=== PATIENT | male | born 1960 | race Hispanic/Latino ===

== ENCOUNTER 2018-01-02 17:55 | Observation (INO) | payer BC ==
[~2018-01-02] VITALS: Ht 154.2 cm; Wt 101.6 kg
[~2018-01-02 17:55] MED LIST: FENTANYL CITRATE/PF 100MCG/2 ML INJ ONE; MIDAZOLAM HCL 2 MG/2 ML VIAL ONE
[2018-01-02 18:24] LABS: BASOPHILS # (AUTO) 0.1 (0.0-0.1); BASOPHILS % 0.6 % (0.0-1.0); EOSINOPHILS # (AUTO) 0.6 (0.0-0.4); EOSINOPHILS % 6.2 % (0.0-6.0); HEMATOCRIT 40.9 % (38.2-49.6); HEMOGLOBIN 14.5 g/dL (14.0-18.0); LYMPHOCYTES # (AUTO) 3.6 (1.0-3.2); LYMPHOCYTES % 39.5 % (18.0-39.1); MEAN CORPUSCULAR HEMOGLOBIN 32.5 pg (28-32); MEAN CORPUSCULAR HGB CONC 35.5 g/dL (31-35); MEAN CORPUSCULAR VOLUME 91.7 fL (81-99); MONOCYTES # (AUTO) 0.6 (0.2-0.8); NEUTROPHILS # (AUTO) 4.2 (2.1-6.9); NEUTROPHILS % 46.4 % (38.7-80.0); PLATELET COUNT 231 x10e3/uL (140-360); RED BLOOD COUNT 4.46 x10e6/uL (4.3-5.7); RED CELL DISTRIBUTION WIDTH 12.6 % (11.7-14.4)
[2018-01-02] MEDS ORDERED: ONDANSETRON HCL 4 MG ORAL DISINTEGRATING TAB PO ONE (18:30)
[2018-01-02] MEDS ORDERED: HYDROMORPHONE 2MG/ML INJ IV ONE (18:30)
[2018-01-02 18:41] LABS: ALANINE AMINOTRANSFERASE 34 IU/L (0-55); ALBUMIN 3.9 g/dL (3.5-5.0); ALKALINE PHOSPHATASE 62 IU/L (40-150); ANION GAP 15.3 mmol/L (8-16); BLOOD UREA NITROGEN 16 mg/dL (7-26); BUN/CREATININE RATIO 14 (6-25); CALCIUM 9.3 mg/dL (8.4-10.2); CARBON DIOXIDE 24 mmol/L (22-29); CHLORIDE 100 mmol/L (98-107); CREATININE, SERUM 1.11 mg/dL (0.72-1.25); EST GLOMERULAR FILTRATION RATE > 60 ML/MIN (60-); GLUCOSE 102 mg/dL (74-118); POTASSIUM 3.3 mmol/L (3.5-5.1); SODIUM 136 mmol/L (136-145)
[2018-01-02 18:53] LABS: CREATINE KINASE 257 IU/L (30-200)
--- NOTE | 2018-01-02 19:09 | Diagnostic Imaging Report ---
History: Fall, pain Comparison studies:None Technique: Axial images were obtained from the brain and cervical spine. Coronal and sagittal images reconstructed from the axial data. Intravenous contrast: None Findings: Head CT: Scalp/skull: No abnormalities. No fractures, blastic or lytic lesions. Brain sulci: Appropriate for age. Ventricles: Normal in size and configuration. No hydrocephalus. Extra-axial spaces: No masses. No fluid collections. Parenchyma: No abnormal densities. No masses, hemorrhage, acute or chronic cortical vascular insults. Sellar/suprasellar region: No abnormalities. Craniocervical junction: Patent foramen magnum. No Chiari one malformation. Cervical spine CT: Fractures: None. Soft tissues: No gross abnormalities. Atlantoaxial articulation: Intact. Alignment: Straightening of the normal lordosis. No scoliosis. Cervicomedullary junction: No abnormalities. Patent foramen magnum. Vertebrae: No infection or neoplasm. Degenerative changes: None. Incidental findings: None. Impression: Head CT: 1. Normal study. Cervical spine CT: 1. No acute abnormalities. 2. Cannot exclude ligament, spinal cord and or vascular abnormalities on the basis of this examination. Signed by: DR Ke Maldonado M.D. on 01/02/2018 7:06 PM
[2018-01-02] MEDS ORDERED: DEXAMETHASONE SOD PHOS INJ 4 MG/ML VIAL ONE (19:35)
[2018-01-02] MEDS ORDERED: NALOXONE HCL INJ 0.4 MG/ML AMP ONE (19:35)
[2018-01-02] MEDS ORDERED: SUCCINYLCHOLINE 200 MG/10 ML SYR ONE (19:35)
[2018-01-02] MEDS ORDERED: ONDANSETRON HCL INJ 2 MG/ML VIAL ONE (19:35)
[2018-01-02] MEDS ORDERED: SEVOFLURANE INHAL SOLN 250 ML PEN BTL ONE (19:35)
[2018-01-02] MEDS ORDERED: PROPOFOL IV EMULSION 10 MG/ML 20 ML VIAL ONE (19:35)
[2018-01-02] MEDS ORDERED: TETANUS/DIPHTHERIA TOX ADULT 0.5 ML SYR IM ONE (19:45)
[2018-01-02] MEDS ORDERED: CEFAZOLIN SOD 1 GM/NS 50ML 50 ML IV ONE (19:45)
--- NOTE | 2018-01-02 20:01 | Diagnostic Imaging Report ---
Exam: Left femoral x-ray AP and lateral views Indication:Fell off horse, bruising, deep laceration right upper anterior tib-fib Comparison: None Findings: The bones are well-mineralized. No fracture, dislocation, lytic or blastic lesion. The soft tissues are unremarkable. Impression: No evidence of a left femoral fracture. Signed by: Dr. Vicky Galvan M.D. on 01/02/2018 7:57 PM
--- NOTE | 2018-01-02 20:01 | Diagnostic Imaging Report ---
EXAM: HIPS BILAT 5 VWS (+/- PELVIS) INDICATION: Fell off horse, bruising, deep laceration right upper anterior tib-fib COMPARISON: None FINDINGS: BONES: No acute fractures. JOINTS: No malalignment. Degenerative changes of the pubic symphysis. SOFT TISSUES: Normal IMPRESSION: No evidence of a pelvic or hip fracture. Signed by: Dr. Vicky Galvan M.D. on 01/02/2018 7:58 PM
--- NOTE | 2018-01-02 20:03 | Diagnostic Imaging Report ---
Exam: Right femoral x-ray AP and lateral views Indication:Fell off horse, bruising, deep laceration right upper anterior tib-fib Comparison: None Findings: The bones are well-mineralized. No fracture, dislocation, lytic or blastic lesion. The soft tissues are unremarkable. Impression: No evidence of a right femoral fracture. Signed by: Dr. Vicky Galvan M.D. on 01/02/2018 8:00 PM
--- NOTE | 2018-01-02 20:03 | Diagnostic Imaging Report ---
EXAM: LOWER LEG LEFT, AP and lateral INDICATION: Fell off horse, deep laceration right anterior tibia and fibula COMPARISON: None FINDINGS: BONES: No acute fractures. JOINTS: No malalignment. SOFT TISSUES: Normal IMPRESSION: No left tibial or fibular fracture. Signed by: Dr. Vicky Galvan M.D. on 01/02/2018 7:59 PM
--- NOTE | 2018-01-02 20:06 | Diagnostic Imaging Report ---
EXAM: LOWER LEG RIGHT, AP and lateral INDICATION: Fell off horse, bruising, deep laceration right upper anterior tib-fib COMPARISON: None FINDINGS: BONES: No acute fractures. JOINTS: No malalignment. SOFT TISSUES: Subcutaneous emphysema anterior tibia superficial 5 mm radiopaque foreign body anterior tibia at the level of the tibial tuberosity. IMPRESSION: Laceration anterior tibia associated with a 5 mm radiopaque foreign body. No evidence of underlying fracture. Signed by: Dr. Vicky Galvan M.D. on 01/02/2018 8:03 PM
[2018-01-02] MEDS ORDERED: CEFAZOLIN SOD 1 GM VIAL ONE (20:08)
--- NOTE | 2018-01-02 20:08 | Diagnostic Imaging Report ---
EXAM: CHEST SINGLE (NOT PORTABLE), AP 1 view INDICATION: Fall off horse COMPARISON: None FINDINGS: LINES/TUBES: None LUNGS: No consolidations or edema. PLEURA: No effusions or pneumothorax. HEART AND MEDIASTINUM: Normal size and contour. BONES AND SOFT TISSUES: No acute findings. IMPRESSION: No acute thoracic abnormality. Signed by: Dr. Vicky Galvan M.D. on 01/02/2018 8:04 PM
[2018-01-02] MEDS ORDERED: LEVOFLOXACIN 500MG/D5W 100ML 100 ML IV STA (20:18)
[2018-01-02 20:31] LABS: INR 1.07; PROTHROMBIN TIME 13.1 seconds (11.9-14.5)
[2018-01-02 20:32] LABS: PARTIAL THROMBOPLASTIN TIME 32.3 seconds (23.8-35.5)
[2018-01-02] MEDS ORDERED: BACITRACIN 50,000 UNIT VIAL ONE (20:49)
[2018-01-02] MEDS ORDERED: LIDOCAINE HCL 1% LOCAL INJ 20 ML VIAL INJ ONE (21:00)
[2018-01-02] MEDS ORDERED: METHYLENE BLUE 1% INJ 10 ML VIAL INJ ONE ×2 (21:00→21:01)
[2018-01-02] MEDS ORDERED: SODIUM CHLORIDE 0.9% 500ML 0 ML ONE (21:04)
[2018-01-02] MEDS ORDERED: SODIUM CHLORIDE 0.9% 1000ML 1,000 ML IV SCH (21:13)
[2018-01-02] MEDS ORDERED: LEVOFLOXACIN 500MG/D5W 100ML 100 ML IV SCH (21:15)
[2018-01-02] MEDS ORDERED: HYDRALAZINE HCL 20 MG/ML VIAL IV PRN (21:15)
[2018-01-02] MEDS ORDERED: SODIUM CHLORIDE 0.9% IRRIG 3,000 ML BAG IR ONE (21:15)
[2018-01-02] MEDS ORDERED: HYDROMORPHONE 1MG/1ML INJ IV PRN (21:15)
[2018-01-02] MEDS ORDERED: ONDANSETRON HCL INJ 2 MG/ML VIAL IV PRN (21:15)
--- OUTSIDE RECORDS SUMMARY | 2018-01-02 21:48 | XMS REPORT ---
Author Author [facility] Address Unknown Phone Unavailable Care Team Providers Care Stoner Hand Name Role Phone YOSVANY LIU Unavailable Unavailable Problems This patient has no known problems. Allergies, Adverse Reactions, Alerts This patient has no known allergies or adverse reactions. Medications This patient has no known medications. Results Test Description Test Time Test Comments Text Results Atomic Results Result Comments CHEST SINGLE (NOT PORTABLE) [place] [address] Patient Name: REBEKAH SAM MR #: [id number] : 1960 Age/Sex: 57/M Req #: [id number] Adm Physician: Ordered by: SONIA MILLARD ASSOCIATE PASTOR Report #: [id number] Location: ER Room/Bed: Procedure: [id number] DX/CHEST SINGLE (NOT PORTABLE) Exam Date: 01/02/18 Exam Time: 1845 REPORT STATUS: Signed EXAM: CHEST SINGLE (NOT PORTABLE), AP 1 view INDICATION: Fall off horse COMPARISON: None FINDINGS: LINES/TUBES: None LUNGS: No consolidations or edema. PLEURA: No effusions or pneumothorax. HEART AND MEDIASTINUM: Normal size and contour. BONES AND SOFT TISSUES: No acute findings. IMPRESSION: No acute thoracic abnormality. Signed by: Dr. Jake Galvan M.D. on 01/02/2018 8:04 PM Dictated By: JAKE GALVAN MD 03 Transcribed By: JONH on 01/02/182003 COPY TO: SONIA MILLARD ASSOCIATE PASTOR CT CERVICAL SPINE WO [place] [address] Patient Name: REBEKAH SAM MR #: [id number] : 1960 Age/Sex: 57/M Req #: [id number] Adm Physician: Ordered by: SONIA MILLARD ASSOCIATE PASTOR Report # : [id number] Location: ER Room/Bed: Procedure: [id number] CT/CT CERVICAL SPINE WO Exam Date: Exam Time : REPORT STATUS: Signed History: Fall, pain Comparison studies:None Technique: Axial images were obtained from the brain and cervical spine. Coronal and sagittal images reconstructed from the axial data. Intravenous contrast: None Findings: Head CT: Scalp/skull: No abnormalities. No fractures, blastic or lytic lesions. Brain sulci: Appropriate for age. Ventricles: Normal in size and configuration. No hydrocephalus. Extra-axial spaces: No masses. No fluid collections. Parenchyma: No abnormal densities. No masses, hemorrhage, acute or chronic cortical vascular insults. Sellar/suprasellar region: No abnormalities. Craniocervical junction: Patent foramen magnum. No Chiari one malformation. Cervical spine CT: Fractures: None. Soft tissues: No gross abnormalities. Atlantoaxial articulation: Intact. Alignment: Straightening of the normal lordosis. No scoliosis. Cervicomedullary junction : No abnormalities. Patent foramen magnum. Vertebrae: No infection or neoplasm. Degenerative changes: None. Incidental findings: None. Impression: Head CT: 1. Normal study. Cervical spine CT: 1. No acute abnormalities. 2. Cannot exclude ligament, spinal cord and or vascular abnormalities on the basis of this examination. Signed by: DR Ke Maldonado M.D. on 01/02/2018 7:06 PM Dictated By: KE MALDONADO MD 05 Transcribed By: JONH on 01/02/181905 COPY TO: SONIA MILLARD NP CT BRAIN WO [place] [address] Patient Name: REBEKAH SAM MR #: [id number] : 1960 Age/Sex: 57/M Req #: [id number] Adm Physician: Ordered by: SONIA MILLARD NP Report #: [id number] Location: ER Room/Bed: Procedure: [id number] CT/CT BRAIN WO Exam Date: Exam Time: REPORT STATUS: Signed History: Fall, pain Comparison studies:None Technique: Axial images were obtained from the brain and cervical spine. Coronal and sagittal images reconstructed from the axial data. Intravenous contrast: None Findings: Head CT: Scalp/skull: No abnormalities. No fractures, blastic or lytic lesions. Brain sulci: Appropriate for age. Ventricles: Normal in size and configuration. No hydrocephalus. Extra- axial spaces: No masses. No fluid collections. Parenchyma: No abnormal densities. No masses, hemorrhage, acute or chronic cortical vascular insults. Sellar/suprasellar region: No abnormalities. Craniocervical junction: Patent foramen magnum. No Chiari one malformation. Cervical spine CT: Fractures: None. Soft tissues: No gross abnormalities. Atlantoaxial articulation: Intact. Alignment: Straightening of the normal lordosis. No scoliosis. Cervicomedullary junction : No abnormalities. Patent foramen magnum. Vertebrae: No infection or neoplasm. Degenerative changes: None. Incidental findings: None. Impression: Head CT: 1. Normal study. Cervical spine CT: 1. No acute abnormalities. 2. Cannot exclude ligament, spinal cord and or vascular abnormalities on the basis of this examination. Signed by: DR Ke Maldonado M.D. on 01/02/2018 7:06 PM Dictated By: KE MALDONADO MD 05 Transcribed By: JONH on 01/02/181905 COPY TO: SONIA MILLARD ASSOCIATE PASTOR FEMUR 2 VIEWS MINIMUM LEFT [place] [address] Patient Name: REBEKAH SAM MR #: [id number] : 1960 Age/Sex: 57/M Req #: [id number] Adm Physician: Ordered by: SONIA MILLARD ASSOCIATE PASTOR Report # : [id number] Location: ER Room/Bed: Procedure: [id number] DX/FEMUR 2 VIEWS MINIMUM LEFT Exam Date: Exam Time: REPORT STATUS: Signed Exam: Left femoral x-ray AP and lateral views Indication:Fell off horse, bruising, deep laceration right upper anterior tib-fib Comparison: None Findings: The bones are well- mineralized. No fracture, dislocation, lytic or blastic lesion. The soft tissues are unremarkable. Impression: No evidence of a left femoral fracture. Signed by: Dr. Jake Galvan M.D. on 01/02/2018 7:57 PM Dictated By: JAKE GALVAN MD 56 Transcribed By: JONH on 01/02/181956 COPY TO: SONIA MILLARD ASSOCIATE PASTOR HIPS BILAT 5 VWS (+/- PELVIS) [place] [address] Patient Name: RBEEKAH SAM MR #: [id number] : 1960 Age/Sex: 57/M Req #: [id number] Adm Physician: Ordered by: SONIA MILLARD ASSOCIATE PASTOR Report #: [id number] Location: ER Room/Bed: Procedure: [id number] DX/HIPS BILAT 5 VWS (+/- PELVIS) Exam Date: Exam Time: REPORT STATUS: Signed EXAM: HIPS BILAT 5 VWS (+/- PELVIS) INDICATION: Fell off horse, bruising, deep laceration right upper anterior tib-fib COMPARISON: None FINDINGS: BONES: No acute fractures. JOINTS: No malalignment. Degenerative changes of the pubic symphysis. SOFT TISSUES: Normal IMPRESSION: No evidence of a pelvic or hip fracture. Signed by: Dr. Jake Galvan M.D. on 2017 7:58 PM Dictated By: JAKE GALVAN MD 57 Transcribed By: JONH on 01/02/181957 COPY TO: SONIA MILLARD ASSOCIATE PASTOR LOWER LEG LEFT [place] [address] Patient Name: REBEKAH SAM MR #: [id number] : 1960 Age/Sex: 57/M Req #: [id number] Adm Physician: Ordered by: SONIA MILLARD NP Report #: [id number] Location: ER Room/Bed: Procedure: [id number] DX/LOWER LEG LEFT Exam Date: 01/02/18 Exam Time: 1845 REPORT STATUS: Signed EXAM: LOWER LEG LEFT, AP and lateral INDICATION: Fell off horse, deep laceration right anterior tibia and fibula COMPARISON: None FINDINGS: BONES: No acute fractures. JOINTS: No malalignment. SOFT TISSUES: Normal IMPRESSION: No left tibial or fibular fracture. Signed by: Dr. Jake Galvan M.D. on 01/02/2018 7:59 PM Dictated By: JAKE GALVAN MD 58 Transcribed By: JONH on 01/02/181958 COPY TO: SONIA MILLARD ASSOCIATE PASTOR FEMUR TWO VIEW MINIMUM RIGHT [place] [address] Patient Name: REBEKAH SAM MR #: [id number] : 1960 Age/Sex: 57/M Req #: [id number] Adm Physician: Ordered by: SONIA MILLARD ASSOCIATE PASTOR Report #: [id number] Location: ER Room/Bed: Procedure: [id number] DX/FEMUR TWO VIEW MINIMUM RIGHT Exam Date: Exam Time: REPORT STATUS: Signed Exam: Right femoral x- ray AP and lateral views Indication:Fell off horse, bruising, deep laceration right upper anterior tib-fib Comparison: None Findings: The bones are well -mineralized. No fracture, dislocation, lytic or blastic lesion. The soft tissues are unremarkable. Impression: No evidence of a right femoral fracture. Signed by: Dr. Jake Galvan M.D. on 01/02/2018 8:00 PM Dictated By: JAKE GALVAN MD 99 Transcribed By: JONH on 01/02/181999 COPY TO: SONIA MILLARD NP LOWER LEG RIGHT [place] [address] Patient Name: REBEKAH SAM MR #: [id number] : 1960 Age/Sex: 57/M Req #: [id number] [facility] Physician: Ordered by: SONIA MILLARD NP Report #: [id number] Location: ER Room/Bed: Procedure: [id number] DX/LOWER LEG RIGHT Exam Date: 01/02/18 Exam Time: 1844 REPORT STATUS: Signed EXAM: LOWER LEG RIGHT, AP and lateral INDICATION: Fell off horse, bruising, deep laceration right upper anterior tib -fib COMPARISON: None FINDINGS: BONES: No acute fractures. JOINTS: No malalignment. SOFT TISSUES: Subcutaneous emphysema anterior tibia superficial 5 mm radiopaque foreign body anterior tibia at the level of the tibial tuberosity. IMPRESSION: Laceration anterior tibia associated with a 5 mm radiopaque foreign body. No evidence of underlying fracture. Signed by: Dr. Jake Galvan M.D. on 01/02/2018 8:03 PM Dictated By: JAKE GALVAN MD 02 Transcribed By: JONH on 01/02/182002 COPY TO: SONIA MILLARD NP
--- OUTSIDE RECORDS SUMMARY | 2018-01-02 21:48 | XMS REPORT | Continuity of Care Document ---
Author Author [facility] Organization [facility] Address [address] [place] [address] Phone Unavailable Care Team Providers Care Operating Room Scheduler Name Role Phone ALPESH CUENCA PCP Insurance Providers Guarantor LuciusJames Address [address] [place] [address] Email PT DECLINED [facility] Policy Number [id number] Subscriber's Name James Sam Relationship 18 Self / Same As Patient Group Number [id number] Group Name [employer]. Effective Date 15 Advance Directives Directive Response Recorded Date/Time Does the patient have an advance directive? No 01/02/18 6:34pm If yes, is advance directive on file with [facility]? No 01/02/18 6:34pm If not on file with [facility] will patient provide a copy? No 01/02/18 6:34pm Do you have a Directive to Physician? No 01/02/18 6:34pm Do you have a Medical Power of [place]? No 01/02/18 6:34pm Do you have an out of hospital Do Not Resuscitate Order? No 01/02/18 6:34pm Do you have any special needs we should be aware of? No 01/02/18 6:34pm Do you have a support person here with you today? No 01/02/18 6:34pm Did patient receive Notice of Privacy Practices? Yes 01/02/18 6:34pm Did patient receive patient rights and responsibilities? Yes 01/02/18 6:34pm Problems Medical Problem Onset Date Status Concussion Unknown Laceration of knee with foreign body Unknown Laceration of knee with tendon involvement Unknown Multiple abrasions Unknown Multiple bruises Unknown Medications No medication information available. Social History Smoking Status Start Date Stop Date Never Smoker Hospital Discharge Instructions No hospital discharge instruction information available. Plan of Care Discharge Date 01/02/18 9:15pm Disposition ADMITTED Condition at Discharge Stable Forms Provided Work/School Excuse Prescriptions See Medication Section Functional Status No functional status information available. Allergies, Adverse Reactions, Alerts No known allergies. Immunizations No immunization information available. Vital Signs Acute Vital Signs Vital Response Date/Time Height 5 ft 8 in 01/02/2018 6:02pm Weight 200 lb 01/02/2018 6:02pm Body Mass Index 30.4 kg/m^2 01/02/2018 6:02pm Results Laboratory Results Test Name Result Units Flags Reference Collection Date/Time Result Date/ Time Comments White Blood Count 9.03 x10e3/uL 4.8-10.8 01/02/2018 6:00pm 01/02/2018 6 :34pm Red Blood Count 4.46 x10e6/uL 4.3-5.7 01/02/2018 6:00pm 01/02/2018 6: 34pm Hemoglobin 14.5 g/dL 14.0-18.0 01/02/2018 6:00pm 01/02/2018 6:34pm Hematocrit 40.9 % 38.2-49.6 01/02/2018 6:00pm 01/02/2018 6:34pm Mean Corpuscular Volume 91.7 fL 81-99 01/02/2018 6:00pm 01/02/2018 6: 34pm Mean Corpuscular Hemoglobin 32.5 pg H 28-32 01/02/2018 6:00pm 2017 6:34pm Mean Corpuscular Hemoglobin Concent 35.5 g/dL H 31-35 01/02/2018 6:00pm 01/02/2018 6:34pm Red Cell Distribution Width 12.6 % 11.7-14.4 01/02/2018 6:00pm 2017 6:34pm Platelet Count 231 x10e3/uL 140-360 01/02/2018 6:00pm 01/02/2018 6: 34pm Neutrophils (%) (Auto) 46.4 % 38.7-80.0 01/02/2018 6:00pm 01/02/2018 6: 34pm Lymphocytes (%) (Auto) 39.5 % H 18.0-39.1 01/02/2018 6:00pm 01/02/2018 6 :34pm Monocytes (%) (Auto) 7.0 % 4.4-11.3 01/02/2018 6:00pm 01/02/2018 6: 34pm Eosinophils (%) (Auto) 6.2 % H 0.0-6.0 01/02/2018 6:00pm 01/02/2018 6: 34pm Basophils (%) (Auto) 0.6 % 0.0-1.0 01/02/2018 6:00pm 01/02/2018 6:34pm IM GRANULOCYTES % 0.3 % 0.0-1.0 01/02/2018 6:00pm 01/02/2018 6:34pm Neutrophils # (Auto) 4.2 2.1-6.9 01/02/2018 6:00pm 01/02/2018 6:34pm Lymphocytes # (Auto) 3.6 H 1.0-3.2 01/02/2018 6:00pm 01/02/2018 6: 34pm Monocytes # (Auto) 0.6 0.2-0.8 01/02/2018 6:00pm 01/02/2018 6:34pm Eosinophils # (Auto) 0.6 H 0.0-0.4 01/02/2018 6:00pm 01/02/2018 6: 34pm Basophils # (Auto) 0.1 0.0-0.1 01/02/2018 6:00pm 01/02/2018 6:34pm Absolute Immature Granulocyte (auto 0.03 x10e3/uL 0-0.1 01/02/2018 6: 00pm 01/02/2018 6:34pm Prothrombin Time 13.1 seconds 11.9-14.5 01/02/2018 6:00pm 01/02/2018 8: 44pm Prothromb Time International Ratio 1.07 01/02/2018 6:00pm 2017 8:44pm Oral Anticoagulant Therapy INR Values: 1. Low Intensity Therapy 1.5 - 2.0 2. Moderate Intensity Therapy 2.0 - 3.0 3. High Intensity Therapy(1) 2.5 - 3.5 4. High Intensity Therapy(2) 3.0 - 4.0 5. Panic Value INR > 5.0 Activated Partial Thromboplast Time 32.3 seconds 23.8-35.5 01/02/2018 6: 00pm 01/02/2018 8:44pm Sodium Level 136 mmol/L 136-145 01/02/2018 6:00pm 01/02/2018 6:43pm Potassium Level 3.3 mmol/L L 3.5-5.1 01/02/2018 6:00pm 01/02/2018 6: 43pm Chloride Level 100 mmol/L 98-107 01/02/2018 6:00pm 01/02/2018 6:43pm Carbon Dioxide Level 24 mmol/L 22-29 01/02/2018 6:00pm 01/02/2018 6: 43pm Anion Gap 15.3 mmol/L 8-16 01/02/2018 6:00pm 01/02/2018 6:43pm Blood Urea Nitrogen 16 mg/dL 7-26 01/02/2018 6:00pm 01/02/2018 6:43pm Creatinine 1.11 mg/dL 0.72-1.25 01/02/2018 6:00pm 01/02/2018 6:43pm BUN/Creatinine Ratio 14 6-01/02/2018 6:00pm 01/02/2018 6:43pm Estimat Glomerular Filtration Rate > 60 ML/MIN 60- 01/02/2018 6:00pm 6:43pm Ranges were taken from the National Kidney Disease Education Program and the National Kid[employer] Foundation literature. Reference ranges: 60 or greater: Normal 16-59 (for 3 consecutive months): Chronic kidney disease 15 or less: Kidney failure Glucose Level 102 mg/dL 74-118 01/02/2018 6:00pm 01/02/2018 6:43pm Calcium Level 9.3 mg/dL 8.4-10.2 01/02/2018 6:00pm 01/02/2018 6:43pm Total Bilirubin 0.9 mg/dL 0.2-1.2 01/02/2018 6:00pm 01/02/2018 6:43pm Aspartate Amino Transf (AST/SGOT) 32 IU/L 5-34 01/02/2018 6:00pm 2017 6:43pm Alanine Aminotransferase (ALT/SGPT) 34 IU/L 0-55 01/02/2018 6:00pm 12/2017 6:43pm Total Protein 7.8 g/dL 6.5-8.1 01/02/2018 6:00pm 01/02/2018 6:43pm Albumin 3.9 g/dL 3.5-5.0 01/02/2018 6:00pm 01/02/2018 6:43pm Globulin 3.9 g/dL H 2.3-3.5 01/02/2018 6:00pm 01/02/2018 6:43pm Albumin/Globulin Ratio 1.0 0.8-2.0 01/02/2018 6:00pm 01/02/2018 6: 43pm Alkaline Phosphatase 62 IU/L 40-150 01/02/2018 6:00pm 01/02/2018 6: 43pm Creatine Kinase 257 IU/L H 30-200 01/02/2018 6:00pm 01/02/2018 6:57pm Creatine Kinase MB 5.30 ng/mL H 0-5.0 01/02/2018 6:00pm 01/02/2018 7: 03pm Troponin I < 0.001 ng/mL 0-0.300 01/02/2018 6:00pm 01/02/2018 7:03pm Procedures Procedure Status Date Provider(s) Computed tomography of brain without radiopaque contrast Active 01/02/18 SONIA MILLARD CERTIFIED ORTHOTIC FITTER Computed tomography of cervical spine without contrast Active 01/02/18 SONIA MILLARD CERTIFIED ORTHOTIC FITTER X-ray of chest, single view Active 01/02/18 SONIA MILLARD CERTIFIED ORTHOTIC FITTER Encounters Encounter Location Arrival/Admit Date Discharge/Depart Date Attending Provider Departed Emergency Room [facility] 01/02/18 5:55pm 9:15pm YOSVANY LIU MD
[2018-01-02 21:58] LABS: CLARITY,URINE CLEAR (CLEAR); COLOR,URINE YELLOW (YELLOW); KETONES,URINE NEGATIVE (NEGATIVE); LEUKOCYTE ESTERASE ,URINE NEGATIVE (NEGATIVE); NITRITE,URINE NEGATIVE (NEGATIVE); PROTEIN,URINE DIPSTICK NEGATIVE (NEGATIVE); URINE UROBILINOGEN 0.2 mg/dL (0.2 - 1)
[2018-01-02 21:59] LABS: BILIRUBIN,URINE NEGATIVE (NEGATIVE)
[2018-01-02] MEDS ORDERED: CEFAZOLIN SOD 1 GM/NS 50ML 50 ML IV SCH (22:00)
[2018-01-02 22:22] LABS: BACTERIA,URINE RARE /HPF; RBC,URINE 0-5 /HPF (0-5); WBC,URINE (MAN) 0-5 /HPF (0-5)
[2018-01-02] MEDS ORDERED: FENTANYL CITRATE/PF 100MCG/2 ML INJ ONE (23:23)
[2018-01-02] MEDS ORDERED: METOCLOPRAMIDE HCL 10 MG/2ML VIAL ONE (23:45)
[2018-01-03] VITALS (8 sets, daily range): BP systolic 130–143; BP diastolic 71–79
[2018-01-03] MEDS ORDERED: SODIUM CHLORIDE 0.9% 1000ML 1,000 ML IV SCH (01:00)
[2018-01-03] MEDS ORDERED: MORPHINE SULFATE 5 MG/ML VIAL IV PRN (01:00)
[2018-01-03] MEDS: HYDROCODONE/APAP 5MG-325MG TAB PO PRN ×2 (03:04→11:59)
[2018-01-03] MEDS ORDERED: CEFAZOLIN SOD IV SCH (05:44)
[2018-01-03] MEDS ORDERED: SODIUM CHLORIDE 0.9% IV SCH (05:44)
[2018-01-03 06:06] LABS: BASOPHILS % 0.1 % (0.0-1.0); HEMATOCRIT 36.3 % (38.2-49.6); HEMOGLOBIN 12.6 g/dL (14.0-18.0); LYMPHOCYTES # (AUTO) 0.6 (1.0-3.2); LYMPHOCYTES % 6.9 % (18.0-39.1); MEAN CORPUSCULAR HEMOGLOBIN 32.6 pg (28-32); MEAN CORPUSCULAR HGB CONC 34.7 g/dL (31-35); MONOCYTES # (AUTO) 0.4 (0.2-0.8); MONOCYTES % 4.3 % (4.4-11.3); NEUTROPHILS # (AUTO) 8.2 (2.1-6.9); NEUTROPHILS % 88.4 % (38.7-80.0); PLATELET COUNT 196 x10e3/uL (140-360); RED BLOOD COUNT 3.86 x10e6/uL (4.3-5.7); RED CELL DISTRIBUTION WIDTH 12.7 % (11.7-14.4)
[2018-01-03 06:34] LABS: ALANINE AMINOTRANSFERASE 33 IU/L (0-55); ALBUMIN 3.4 g/dL (3.5-5.0); ALKALINE PHOSPHATASE 52 IU/L (40-150); ANION GAP 14.2 mmol/L (8-16); BLOOD UREA NITROGEN 16 mg/dL (7-26); BUN/CREATININE RATIO 16 (6-25); CALCIUM 8.6 mg/dL (8.4-10.2); CARBON DIOXIDE 23 mmol/L (22-29); CHLORIDE 104 mmol/L (98-107); CREATININE, SERUM 1.03 mg/dL (0.72-1.25); EST GLOMERULAR FILTRATION RATE > 60 ML/MIN (60-); GLUCOSE 125 mg/dL (74-118); POTASSIUM 4.2 mmol/L (3.5-5.1); SODIUM 137 mmol/L (136-145)
[2018-01-03] MEDS ORDERED: LISINOPRIL 10 MG TAB ONE (08:06)
[2018-01-03] MEDS: LISINOPRIL 10 MG TAB PO SCH (08:10)
[2018-01-03] MEDS ORDERED: MORPHINE SULFATE 2 MG/ML SYR IV PRN ×2 (08:15)
[2018-01-03] MEDS ORDERED: HYDROMORPHONE 2MG/ML INJ IV PRN (08:15)
[2018-01-03] MEDS ORDERED: LISINOPRIL 10 MG TAB PO SCH (09:00)
[2018-01-03] MEDS: CEFAZOLIN SOD 1 GM VIAL IV SCH ×2 (13:22→21:30)
--- NOTE | 2018-01-03 16:36 | Consultation ---
DATE OF CONSULTATION: January 03, 2018 NEUROLOGY CONSULTATION HISTORY OF PRESENT ILLNESS: Mr. Kan is a 57-year-old, right hand dominant man with past medical history significant for hypertension and hyperlipidemia, who presented to the emergency center at [facility] on January 02, 2018, status post trauma with multiple injuries. The neurology service is consulted for further evaluation and treatment of the patient's head injury. On the afternoon of January 02, 2018, the patient was standing in a wagon, which was being pulled by a horse. While this activity occurred, the horse was able to break loose and run from the wagon. As a result, Mr. Kan was ejected from the wagon. He was propelled forward and landed on his knees. The forward momentum resulted in his landing on his hands and hitting his forehead on the ground. The patient does not report loss of consciousness. He does not report feeling dazed after hitting his head. The patient's daughter brought him to the emergency center at [facility] for further evaluation. According to the emergency center physician, the patient was confused upon admission to the emergency center. Over the following 1 to 2 hours, the patient's confusion improved until he returned to his neurological baseline. Due to the occurrence of probable concussion as well as other injuries, the patient was admitted to [facility] for further evaluation and treatment. Mr. Kan does not report confusion, headache, blurred vision, double vision or other visual disturbance, nausea, vomiting, or dizziness. Despite the emergency center physician's report of confusion, Mr. Kan states he recalls the car ride to the emergency center, admission to the emergency center, speaking with nurses and doctors, and undergoing various diagnostic studies including x-rays and CT scans. REVIEW OF SYSTEMS: Pain in the right leg. Otherwise, the 12-point review of systems is negative. PAST MEDICAL HISTORY: Hypertension, hyperlipidemia. PAST SURGICAL HISTORY: Left hand surgery. PAST HOSPITALIZATIONS: Surgeries and procedures as listed. FAMILY HISTORY: Hypertension. The patient's mother is recently from heart disease. SOCIAL HISTORY: Mr. Kan is . 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 The patient does not report current or prior tobacco or recreational drug use. He does endorse alcohol use. Mr. Kan reports drinking 2 beers per day on weekdays. On the weekends, he may drink 6 to 12 beers. HOME MEDICATIONS: Losartan/hydrochlorothiazide 100 and 12.5 mg by mouth daily, unknown statin 40 mg by mouth daily. ALLERGIES: NO KNOWN DRUG ALLERGIES. NO KNOWN FOOD ALLERGIES. NO KNOWN ALLERGIES TO LATEX. NO KNOWN ALLERGIES TO IODINE OR OTHER CONTRAST MATERIALS. PHYSICAL EXAMINATION VITAL SIGNS: Height 61 inches, weight 224 pounds. BMI 42.7 kg per meter squared. Blood pressure 140/71 mmHg, pulse 64 beats per minute, respiratory rate 18 breaths per minute, oxygen saturation 98% on room air. GENERAL: Patient is awake and alert, does not appear distressed. Obese. HEENT: Normocephalic. Small abrasion is seen over the left side of the forehead. Pupils are equal, round and reactive to light. Moist mucous membranes. NECK: Supple. No appreciable thyromegaly. No appreciable carotid bruits. CARDIOVASCULAR: S1 and S2, regular rate and rhythm. No murmurs, rubs or gallops. RESPIRATORY: Clear to auscultation bilaterally. No wheezes, rhonchi or rales. EXTREMITIES: Skin is warm and dry. No clubbing, cyanosis, or edema. The posterior tibial and dorsalis pedis pulses are 2+ and symmetric. SKIN: The forelegs and knees are wrapped in gauze. There are towels with ice packs placed over the knees. NEUROLOGIC EXAMINATION MEMORY/ATTENTION: The patient is awake, alert and oriented to person, place, time, and situation. CRANIAL NERVES: Cranial nerve I: Not tested. Cranial nerves II, III, IV and : Pupils are equal and round, react briskly to light (from 4 mm to 2 mm). Extraocular movements intact. No nystagmus. Cranial nerve V: Sensation to light touch and pinprick is intact in the bilateral V1 through V3 distributions. Strength of the temporalis and mastoid muscles is within normal limits. Cranial nerve VII: The face is symmetric as are all facial movements. Strength is within normal limits. Cranial nerve VIII: Hearing is intact to finger rub bilaterally. Cranial nerve IX and X: Soft palate elevates equally and symmetrically. Cranial nerve XI: Normal strength of the bilateral sternocleidomastoid and trapezius muscles. Cranial nerve XII: The tongue protrudes in the midline and moves symmetrically from side to side. STRENGTH: Bulk is normal. Strength is 5/5 in the bilateral deltoids, biceps, triceps, wrist flexors and extensors, finger flexors and extensors, intrinsic hand muscles, hip flexors, ankle dorsiflexion and plantarflexion, and intrinsic foot muscles. Tone is normal. Limited movement of the lower extremities secondary to pain. DTRs: Deep tendon reflexes are 2+ and symmetric at the triceps, biceps and brachial radialis. The lower extremities are not assessed secondary to pain. Plantar responses are flexor bilaterally. Absent clonus. SENSATION: Sensation is intact to light touch and pinprick in both arms and both legs. CEREBELLAR: Ducccl-ppww-awwisp movements are intact without dysmetria or other impairment. Lower extremities are not assessed secondary to pain. Rapid alternating movements are intact in the upper extremities. GAIT: Deferred. SPEECH: Spontaneous speech is normal without appreciable dysarthria or aphasia. Repetition is intact. INVOLUNTARY MOVEMENTS: None. PRONATOR DRIFT: None. LABORATORY DATA: Sodium 137, potassium 4.2, chloride 104, carbon dioxide 23, anion gap 14.2. BUN 16, creatine 1.03, estimated GFR greater than 60, WHS-yb-btrorwwsun ratio 16. Glucose 125 and calcium 8.6. Total bilirubin 0.9, AST 31, ALT 33, alkaline phosphatase 52, total protein 6.9, albumin 3.4, globulin 3.5, cggmovj-xq-acldajuq ratio 1.0. Creatine kinase 257, CK-MB 5.30, troponin I less than 0.001. CBC with differential and platelets reveals a white blood cell count of 9.32 with a left shift. The hemoglobin and hematocrit are 12.6 and 36.3, respectively. Platelet count is 196. PT 13.1, INR 1.07 and PTT 32.3. Urinalysis is unremarkable. Ethyl alcohol level 188.2. DIAGNOSTIC STUDIES 1. EKG, 01/02/2018: Sinus bradycardia at 59 beats per minute. 2. X-ray of the right leg, 01/02/2018: Laceration of anterior tibia associated with a 5-mm radiopaque foreign body. No evidence of underlying fracture. 3. X-ray of the left leg, 01/02/2018: No left tibial or fibular fracture. 4. Bilateral hip x-ray, 01/02/2018: No evidence of pelvic or hip fracture. 5. X-ray of the left femur, 01/02/2018: No evidence of left femoral fracture. 6. X-ray of the right femur, 01/02/2018: No evidence of a right femoral fracture. 7. CT of brain without contrast, 01/02/2018: On my review, there is no evidence of recent large territorial ischemia, hemorrhage, mass or mass affect. There is no evidence of bleeding in the extra-axial spaces. No evidence of contusion. 8. CT of the cervical spine, 01/02/2018: No acute abnormalities. Injuries to ligament, spinal cord, and/or vascular abnormalities cannot be excluded. 9. Chest x-ray, 01/02/2018: No acute thoracic abnormality. ASSESSMENT AND PLAN: Mr. Kan is a 57-year-old, right hand dominant man with past medical history significant for hypertension and hyperlipidemia, who presented to [facility] with a head injury as well as other injuries following ejection from a wagon which was being pulled by a horse. On neurologic examination, the patient is awake and alert, oriented to person, place, time and situation. There is limited movement of the lower extremities secondary to pain. Otherwise, his neurological examination is nonfocal. The neurological diagnostic studies do not demonstrate acute pathology. All of the patient's laboratory data and diagnostic studies have been reviewed and are documented above. Mr. Kan's confusion in the emergency center may have been secondary to a mild concussion. On the other hand, the patient had a high ethyl alcohol level upon admission to the emergency center. It is possible his confusion was secondary to inebriation. At present, there are no concerning findings on the patient's neurological examination. Mr. Kan does not endorse symptoms of concussion/postconcussion syndrome. There are no recommendations for further diagnostic studies or treatments from the neurology service at this time. The patient should continue to be monitored for alteration in sensorium or symptoms of postconcussion syndrome. Thank you for this consultation. I will continue to monitor the patient while he remains in the hospital. Time spent: 50 minutes. Job#: [id number] ADRIAN ROBINS
[2018-01-03] MEDS ORDERED: ONDANSETRON HCL INJ 2 MG/ML VIAL IV PRN (20:06)
[2018-01-03] MEDS ORDERED: LEVOFLOXACIN 500MG/D5W 100ML 100 ML IV SCH (21:31)
[2018-01-04] VITALS: BP 130/69
[2018-01-04 04:00] VITALS: BP 125/74
[2018-01-04] MEDS: CEFAZOLIN SOD 1 GM VIAL IV SCH (06:02)
[2018-01-04 08:39] VITALS: BP 119/74
[2018-01-04] MEDS: LISINOPRIL 10 MG TAB PO SCH (09:45)
[2018-01-04 09:53] VITALS: BP 119/74
[2018-01-04 12:00] VITALS: BP 141/79
[2018-01-04] MEDS: HYDROCODONE/APAP 5MG-325MG TAB PO PRN (12:21)
[2018-01-04 12:22] VITALS: BP 141/79
[2018-01-04] MEDS ORDERED: HYDROCODONE/APAP 5MG-325MG TAB PO SCH (12:30)
[2018-01-04] MEDS ORDERED: LEVOFLOXACIN500 MG PO (12:41)
[2018-01-04] MEDS ORDERED: KEFLEX500 MG PO (12:41)
[2018-01-04] MEDS ORDERED: ULTRACET TABLE1 EACH PO (12:42)
--- NOTE | 2018-01-04 16:33 | Discharge Summary ---
Mr. Kan is a pleasant 57-year-old man who speaks only Chadian, who presented to the emergency room after falling from a horse. HOSPITAL COURSE: The patient was found to have a left leg laceration and a right penetrating trauma to the knee. Patient was seen in consultation by Dr. Melo and taken the operating room where he had definitive treatment of these injuries. He had a minor abrasion of the forehead. Patient made gradual progress, given IV antibiotics. Today patient is ambulating in the hallway and has been seen by Physical Therapy. He is discharged home to continue his home medication plus the analgesics and antibiotics as prescribed by Dr. Melo. He will follow up with Dr. Melo and Dr. Loving as an outpatient. DISCHARGE DIAGNOSES: 1. Penetrating injury to the right knee. 2. Laceration. 3. Contusion to the head. 4. Hypertension. 5. Hyperlipidemia. AKBAR RAWLS MD Job#: [id number] EV cc:MD ALPESH CUTLER MD
--- NOTE | 2018-01-05 09:36 | History and Physical ---
FAMILY PHYSICIAN: Dr. Margarito Loving. CHIEF COMPLAINT: Mr. James Kan is a 57-year-old man who was brought to the emergency room after falling off of a horse and injuring his legs. HISTORY OF PRESENT ILLNESS: The patient reports he had been drinking and bucked off horse with open wound to the right knee and laceration to the left leg. PAST MEDICAL HISTORY: Significant for hypertension and hyperlipidemia. MEDICATIONS: He does not know the name of his medications at home. PAST SURGICAL HISTORY: He has previously had a surgery to the left hand again for trauma. REVIEW OF SYSTEMS CARDIAC: Negative. PULMONARY: Negative. GASTROINTESTINAL: Negative. PHYSICAL EXAMINATION GENERAL: Exam at this time shows a pleasant alert, Latin-Macanese man with abrasion to his left frontal region. He is alert and oriented. VITAL SIGNS: Blood pressure is 140/70. HEENT: Otherwise, unremarkable. NECK: No jugular venous distention. No bruits. CARDIOVASCULAR: Heart sounds S1 and S2 are equal. No murmurs. RESPIRATORY: Clear. ABDOMEN: Protuberant. Normal bowel sounds. Nontender. EXTREMITIES: Both legs with bandages and ice pack to the right knee. LABORATORY DATA: X-rays were reviewed without significant abnormalities except for his alcohol of 188. ASSESSMENT 1. Fall with trauma of the legs. 2. Contusion to the forehead. 3. History of hypertension. 4. History of hyperlipidemia. PLAN: Patient has already tolerated surgery with Dr. Melo and is making progress. Clinically stable. We will monitor him with you. Job#: [id number] DKOtis cc:Dr. Isaias Loving
--- NOTE | 2018-01-05 12:56 | Operative Report ---
DATE OF PROCEDURE: January 02, 2018 PREOPERATIVE DIAGNOSES 1. Deep laceration and contaminated wound, right anterior knee. 2. Possible open right knee joint. 3. Hematoma, left lower extremity. 4. Deep laceration, left lower extremity. PROCEDURES PERFORMED 1. Saline arthrogram of the right knee. 2. Irrigation and debridement of a deep contaminated wound of the right anterior knee joint. 3. Closure of a 15-cm laceration of the anterior right knee. 4. Evacuation of a left lower extremity hematoma. 5. Irrigation and debridement of a deep laceration to the left knee. 6. Closure of an 8-cm left lower extremity laceration. ANESTHESIA: General endotracheal intubation anesthesia. IV FLUIDS: Per the anesthesia record. DESCRIPTION OF PROCEDURE: Mr. Kan was taken to the operating room and placed in the supine position on the operating table. Following induction of general anesthesia as well as endotracheal intubation, the patient's bilateral lower extremities were examined under anesthesia. He was found to have a deep and contaminated wound overlying the left anterior knee. There were several punctate lesions overlying the patellar tendon suggestive of a penetrating wound. The patient additionally had a hematoma involving the left lower extremity with a small laceration overlying the hematoma. The patient's bilateral extremity compartments were supple. There was no evidence of a compartment syndrome. The case was begun by prepping and draping the bilateral lower extremities. A saline arthrogram was performed of the right knee, and this determined that the right knee was not an open injury. The wound was debrided with both sharp and blunt dissection to remove devitalized tissue. The left leg laceration was then extended. An incision was created over the hematoma extending the laceration, and the hematoma was expressed from the soft-tissue injury. Both wounds were then copiously irrigated with Bacitracin-laden normal saline as well as regular normal saline in a pulse lavage fashion. The right lower extremity wound was closed in a multilayer fashion. Henderson were used to close the skin. The left lower extremity was then closed in a multilayer fashion, and florin were used to close the skin. Each leg was then dressed sterilely, and the patient was then awakened and taken to the postanesthesia care unit in stable condition. Job#: [id number]
== END 2018-01-04 13:50 | disposition home or self-care (01) ==
LOC: ER 17:55 → OR 21:46 → MED/SURG 21:47 → INTOOBSV 21:47
PROVIDERS: ADMIT Internal Medicine Cardiovascular Disease; ATTEND Internal Medicine Cardiovascular Disease
DX: S81.021A Laceration with foreign body, right knee, initial encounter (principal); S00.83XA Contusion of other part of head, initial encounter; V80.010A Animal-rider injured by fall from or being thrown from horse in noncollision accident, initial encounter; Y93.52 Activity, horseback riding; I10 Essential (primary) hypertension; E78.5 Hyperlipidemia, unspecified; F10.120 Alcohol abuse with intoxication, uncomplicated; R41.0 Disorientation, unspecified; S81.812A Laceration without foreign body, left lower leg, initial encounter
CPT/HCPCS: 10140; 13121; 13122 ×4; 36415 ×2; 70450; 71045; 72125; 73523; 73552 ×2; 73590 ×2; 80053 ×2; 80320; 81001; 82550; 82553; 84484; 85025 ×2; 85610; 85730; 86850; 86900; 90714; 93005; 97161; 99284; G0378 ×3; G8978; G8979; J0690 ×2; J1100; J1170 ×2; J1956 ×2; J2001; J2250; J2310; J2405; J2765; J7030; J7040

== ENCOUNTER 2019-04-23 15:16 | Inpatient (IN) | payer BC ==
[~2019-04-23] VITALS: Ht 172.7 cm; Wt 97.9 kg
[~2019-04-23 15:16] MED LIST changes: -FENTANYL CITRATE/PF 100MCG/2 ML INJ ONE; +KEFLEX500 MG PO; +LEVOFLOXACIN500 MG PO; -MIDAZOLAM HCL 2 MG/2 ML VIAL ONE; +ULTRACET TABLE1 EACH PO
[2019-04-23] MEDS ORDERED: SODIUM CHLORIDE 0.9% 1000ML 1,000 ML IV STA (15:37)
[2019-04-23] MEDS ORDERED: ONDANSETRON HCL INJ 2MG/ML 2ML 2 MG/ML VIAL IV NR (15:45)
--- NOTE | 2019-04-23 15:49 | NUR ---
RADIOLOGY AT BEDSIDE FOR XRAYS.
[2019-04-23 15:53] LABS: BASOPHILS % 0.6 % (0.0-1.0); EOSINOPHILS # (AUTO) 0.3 (0.0-0.4); EOSINOPHILS % 4.6 % (0.0-6.0); HEMATOCRIT 43.4 % (38.2-49.6); HEMOGLOBIN 15.1 g/dL (14.0-18.0); LYMPHOCYTES # (AUTO) 2.1 (1.0-3.2); MEAN CORPUSCULAR HEMOGLOBIN 32.6 pg (28-32); MEAN CORPUSCULAR HGB CONC 34.8 g/dL (31-35); MEAN CORPUSCULAR VOLUME 93.7 fL (81-99); MONOCYTES # (AUTO) 0.6 (0.2-0.8); MONOCYTES % 8.3 % (4.4-11.3); NEUTROPHILS # (AUTO) 4.2 (2.1-6.9); NEUTROPHILS % 57.2 % (38.7-80.0); PLATELET COUNT 271 x10e3/uL (140-360); RED BLOOD COUNT 4.63 x10e6/uL (4.3-5.7); RED CELL DISTRIBUTION WIDTH 12.4 % (11.7-14.4)
[2019-04-23 15:56] LABS: INR 0.97; PROTHROMBIN TIME 13.4 seconds (11.9-14.5)
[2019-04-23 15:57] LABS: PARTIAL THROMBOPLASTIN TIME 31.5 seconds (23.8-35.5)
[2019-04-23] MEDS ORDERED: ATORVASTATIN CA40 MG PO (16:00)
[2019-04-23] MEDS ORDERED: ASPIR-LOW81 MG PO (16:00)
[2019-04-23] MEDS ORDERED: ESIDRIX25 MG PO (16:00)
[2019-04-23] MEDS ORDERED: AMLODIPINE BESYL5 MG PO (16:00)
[2019-04-23] MEDS ORDERED: LOSARTAN POTAS100 MG PO (16:00)
[2019-04-23] MEDS ORDERED: SULFAMETHOXAZO1 EAC1 (16:00)
[2019-04-23] MEDS ORDERED: ASPIRIN 81 MG CHEW TAB PO ONE (16:00)
[2019-04-23 16:06] LABS: BILIRUBIN,URINE NEGATIVE (NEGATIVE); CLARITY,URINE SL CLOUDY (CLEAR); COLOR,URINE YELLOW (YELLOW); KETONES,URINE NEGATIVE (NEGATIVE); LEUKOCYTE ESTERASE ,URINE NEGATIVE (NEGATIVE); NITRITE,URINE NEGATIVE (NEGATIVE); PROTEIN,URINE DIPSTICK NEGATIVE (NEGATIVE); URINE UROBILINOGEN 0.2 mg/dL (0.2 - 1)
[2019-04-23 16:06] LABS: ALBUMIN 4.4 g/dL (3.5-5.0); ALBUMIN/GLOBULIN RATIO 1.1 (0.8-2.0); ANION GAP 19.1 mmol/L (8-16); CALCIUM 10.7 mg/dL (8.4-10.2); CREATININE, SERUM 3.28 mg/dL (0.72-1.25); POTASSIUM 4.1 mmol/L (3.5-5.1)
--- NOTE | 2019-04-23 16:12 | Diagnostic Imaging Report ---
EXAMINATION: CHEST SINGLE (PORTABLE) INDICATION: Feels like fainting. COMPARISON: Chest radiograph 01/02/2018. FINDINGS: TUBES and LINES: None. LUNGS: Low lung volumes. Mild patchy bibasilar opacities, likely atelectasis. Central vascular congestion without pulmonary edema. PLEURA: No pleural effusion or pneumothorax. HEART AND MEDIASTINUM: The cardiomediastinal silhouette is unremarkable. There are atherosclerotic calcifications within the aorta. BONES AND SOFT TISSUES: No acute osseous abnormality. UPPER ABDOMEN: No free air under the diaphragm. IMPRESSION: No acute radiographic abnormality. Signed by: Dr. Oziel Evans MD on 04/23/2019 4:09 PM
[2019-04-23 16:18] LABS: PHENCYCLIDINE SCREEN,URINE NEGATIVE (NEGATIVE)
[2019-04-23 16:19] LABS: AMPHETAMINES SCREEN,URINE NEGATIVE (NEGATIVE); BENZODIAZEPINES SCREEN,URINE POSITIVE (NEGATIVE)
[2019-04-23 16:25] LABS: BACTERIA,URINE RARE /HPF; EPITHELIAL CELLS,URINE FEW /LPF; WBC,URINE (MAN) 0-5 /HPF (0-5)
[2019-04-23] MEDS ORDERED: ONDANSETRON HCL INJ 2MG/ML 2ML 2 MG/ML VIAL IV PRN (17:00)
[2019-04-23] MEDS: SODIUM CHLORIDE 0.9% 1000ML 1,000 ML IV SCH ×2 (17:26→23:47)
[2019-04-23 17:48] VITALS: BP 131/95
[2019-04-23 18:08] VITALS: BP 151/75
--- NOTE | 2019-04-23 19:16 | NUR ---
Bedside report and walking rounds complete. Pt resting in bed and in no apparent distress. Family at bedside. All safety measures ensured and pt call munoz near.
[2019-04-23 20:00] VITALS: BP 151/75
[2019-04-23 20:05] VITALS: BP 120/64
[2019-04-23 20:55] LABS: CREATINE KINASE MB 1.6 ng/mL (0-5.0)
[2019-04-24] VITALS (8 sets, daily range): BP systolic 112–135; BP diastolic 65–85
[2019-04-24] MEDS ORDERED: MELATONIN 5 MG TABLET PO PRN (04:45)
[2019-04-24] MEDS ORDERED: HYDRALAZINE HCL 20 MG/ML VIAL IV PRN (04:45)
[2019-04-24] MEDS ORDERED: ACETAMINOPHEN/CODEINE 300MG - 30MG TAB PO PRN (04:45)
[2019-04-24 05:51] LABS: BASOPHILS % 0.3 % (0.0-1.0); EOSINOPHILS # (AUTO) 0.4 (0.0-0.4); EOSINOPHILS % 6.2 % (0.0-6.0); HEMATOCRIT 37.8 % (38.2-49.6); HEMOGLOBIN 12.8 g/dL (14.0-18.0); LYMPHOCYTES # (AUTO) 1.9 (1.0-3.2); LYMPHOCYTES % 31.2 % (18.0-39.1); MEAN CORPUSCULAR HEMOGLOBIN 32.5 pg (28-32); MEAN CORPUSCULAR HGB CONC 33.9 g/dL (31-35); MEAN CORPUSCULAR VOLUME 95.9 fL (81-99); MONOCYTES # (AUTO) 0.5 (0.2-0.8); MONOCYTES % 7.6 % (4.4-11.3); NEUTROPHILS # (AUTO) 3.3 (2.1-6.9); NEUTROPHILS % 54.5 % (38.7-80.0); PLATELET COUNT 215 x10e3/uL (140-360); RED BLOOD COUNT 3.94 x10e6/uL (4.3-5.7); RED CELL DISTRIBUTION WIDTH 12.4 % (11.7-14.4)
[2019-04-24 06:16] LABS: ALBUMIN 3.3 g/dL (3.5-5.0); ANION GAP 9.9 mmol/L (8-16); CALCIUM 8.6 mg/dL (8.4-10.2); CREATININE, SERUM 1.88 mg/dL (0.72-1.25); POTASSIUM 3.9 mmol/L (3.5-5.1)
--- NOTE | 2019-04-24 06:21 | NUR ---
Pt left unit for radiology
--- NOTE | 2019-04-24 06:28 | NUR ---
Pt back on unit
[2019-04-24] MEDS: SODIUM CHLORIDE 0.9% 1000ML 1,000 ML IV SCH ×3 (06:33→20:09)
[2019-04-24 06:50] LABS: CREATINE KINASE 132 IU/L (30-200)
--- NOTE | 2019-04-24 07:00 | NUR ---
BEDSIDE SHIFT REPORT FROM EVENTS AND PROMOTIONS ASSISTANT RN. PT DENIES NEEDS AT THIS TIME.
--- NOTE | 2019-04-24 07:07 | Diagnostic Imaging Report ---
EXAM: CT Abdomen and Pelvis WITHOUT contrast INDICATION: Diarrhea COMPARISON: None. TECHNIQUE: Abdomen and pelvis were scanned utilizing a multidetector helical scanner from the lung base to the pubic symphysis without administration of IV contrast. Absence of intravenous contrast decreases sensitivity for detection of focal lesions and vascular pathology. Coronal and sagittal reformations were obtained. Routine protocol was performed. IV CONTRAST: None ORAL CONTRAST: None COMPLICATIONS: None RADIATION DOSE: Total DLP: 720 mGy*cm Estimated effective dose: (DLP x 0.015 x size factor) mSv CTDIvol has been reviewed. It is below the limits set by the Radiation Protocol Committee (RPC). Dose modulation, iterative reconstruction, and/or weight based adjustment of the mA/kV was utilized to reduce the radiation dose to as low as reasonably achievable. FINDINGS: LINES and TUBES: None. LOWER THORAX: Unremarkable HEPATOBILIARY: Diffuse decreased hepatic attenuation. No biliary ductal dilation. Punctate calcification in the right hepatic lobe is likely a calcified granuloma. GALLBLADDER: No radio-opaque stones or sludge. No wall thickening. SPLEEN: No splenomegaly. PANCREAS: No focal masses or ductal dilatation. ADRENALS: No adrenal nodules KIDNEYS/URETERS: No hydronephrosis. No cystic or solid mass lesions. No stones. GI TRACT: No abnormal distention, wall thickening, or evidence of bowel obstruction. Subtle sigmoid colon wall thickening, without surrounding inflammatory changes. Appendix is normal. PELVIC ORGANS/BLADDER: Unremarkable. LYMPH NODES: No lymphadenopathy. VESSELS: There is mild atherosclerotic disease in the aorta and major arterial branches. PERITONEUM / RETROPERITONEUM: No free air or fluid. BONES: There are degenerative changes in the lumbar spine. Lateral L5 inferior pars defects with minimal anterolisthesis of L5 on S1. No canal stenosis. SOFT TISSUES: Unremarkable. IMPRESSION: 1. Subtle sigmoid colon wall thickening could be due to colitis. 2. Triple vessel coronary artery calcific atherosclerosis. 3. Hepatic steatosis. Signed by: Asif Wright DO on 04/24/2019 7:04 AM
--- NOTE | 2019-04-24 07:08 | NUR ---
Bedside report and walking rounds complete with day shift RN.
[2019-04-24] MEDS: ASPIRIN 81 MG ENTERIC COATED PO SCH (08:08)
[2019-04-24] MEDS: FAMOTIDINE 20 MG TAB PO SCH ×2 (08:08→16:17)
[2019-04-24] MEDS: AMLODIPINE BESYLATE 5 MG TAB PO SCH (08:08)
[2019-04-24 15:05] LABS: CREATINE KINASE 135 IU/L (30-200)
--- NOTE | 2019-04-24 20:00 | NUR ---
INITIAL ASSESSMENT COMPLETE, CALL LIGHT IN REACH, FAMILY AT BEDSIDE, NO EDEMA NOTED, IV INFUSING, PT USES TOILET AND URINAL, STRICT I&O, VS STABLE, NO DISTRESS NOTED, TOLD TO CALL FOR NEEDS.
[2019-04-24] MEDS: ASPIRIN 81 MG CHEW TAB PO SCH (20:56)
[2019-04-24] MEDS: ATORVASTATIN 40 MG TAB PO SCH (20:56)
[2019-04-24] MEDS ORDERED: NON-FORMULARY MEDICATION (Atorvastatin Calcium 40 MG) PO SCH (21:00)
--- NOTE | 2019-04-25 | NUR ---
VS STABLE, PT AWAKE EASILY FOR VS, NO DISTRESS NOTED, TOLD TO CALL FOR NEEDS, CALL LIGHT IN REACH
[2019-04-25 00:32] VITALS: BP 143/87
--- NOTE | 2019-04-25 04:00 | NUR ---
NO DISTRESS NOTED, CALL LIGHT IN REACH, VS STABLE, TOLD TO CALL FOR NEEDS
[2019-04-25 04:20] VITALS: BP 132/80
[2019-04-25] MEDS ORDERED: CIPROFLOXACIN 200 MG/D5W 100ML 100 ML IV SCH (04:45)
[2019-04-25] MEDS ORDERED: CHOLESTYRAMINE 4 GM PACKET PO PRN (04:45)
[2019-04-25 05:48] LABS: BASOPHILS % 0.5 % (0.0-1.0); EOSINOPHILS # (AUTO) 0.4 (0.0-0.4); EOSINOPHILS % 6.3 % (0.0-6.0); HEMATOCRIT 36.6 % (38.2-49.6); HEMOGLOBIN 12.6 g/dL (14.0-18.0); LYMPHOCYTES # (AUTO) 2.1 (1.0-3.2); LYMPHOCYTES % 37.4 % (18.0-39.1); MEAN CORPUSCULAR HGB CONC 34.4 g/dL (31-35); MEAN CORPUSCULAR VOLUME 95.8 fL (81-99); MONOCYTES # (AUTO) 0.5 (0.2-0.8); MONOCYTES % 8.2 % (4.4-11.3); NEUTROPHILS # (AUTO) 2.7 (2.1-6.9); NEUTROPHILS % 47.2 % (38.7-80.0); PLATELET COUNT 200 x10e3/uL (140-360); RED BLOOD COUNT 3.82 x10e6/uL (4.3-5.7); RED CELL DISTRIBUTION WIDTH 12.3 % (11.7-14.4)
[2019-04-25] MEDS: METRONIDAZOLE 500MG/NS 100ML 100 ML IV SCH ×3 (06:00→21:29)
--- NOTE | 2019-04-25 06:09 | NUR ---
STOOL FOR OVA & PARASITE AND STOOL CULTURE DOWN TO LAB, PT GOING FOR CT OF HEAD AT THIS TIME VIA W/C
[2019-04-25 06:14] LABS: CALCIUM 8.8 mg/dL (8.4-10.2); CHOL/HDL RATIO 4.4 (3.9-4.7); CREATININE, SERUM 1.26 mg/dL (0.72-1.25); MAGNESIUM 1.6 MG/DL (1.3-2.1)
--- NOTE | 2019-04-25 06:40 | Diagnostic Imaging Report ---
Exam: Head CT without contrast History: Weakness Comparison studies: Head CT 01/02/2018 Technique: Axial images were obtained from the skull base to the vertex. Coronal and sagittal images reconstructed from the axial data. Dose modulation, iterative reconstruction, and/or weight based adjustment of the mA/kV was utilized to reduce the radiation dose to as low as reasonably achievable. Radiation dose: Total DLP: 921 mGy*cm. Estimated effective dose: DLP x 0.015 Intravenous contrast: None Findings: Scalp: No abnormalities. Bones: No fractures, blastic or lytic lesions. Brain sulci: Appropriate for age. Ventricles: Normal in size and configuration. No hydrocephalus. Extra-axial spaces: No masses, no fluid collection. Parenchyma: No abnormal densities. No masses, acute hemorrhage, acute or chronic vascular insults. Sellar/suprasellar region: No abnormalities. Craniocervical junction: Patent foramen magnum. No Chiari one malformation. Incidental findings: Physiologic calcifications of the globi pallidi. IMPRESSION: 1. No abnormalities. 2. No changes from the prior head CT of 01/02/2018. Signed by: Dr. Bill Eddy M.D. on 04/25/2019 6:36 AM
[2019-04-25 07:06] LABS: B-TYPE NATRIURETIC PEPTIDE2 75.1 pg/mL (0-100)
[2019-04-25] MEDS: CIPROFLOXACIN 200 MG/D5W 100ML 100 ML IV SCH ×2 (07:40→20:00)
[2019-04-25 08:00] VITALS: BP 138/83
[2019-04-25] MEDS ORDERED: ONDANSETRON HCL 4 MG ORAL DISINTEGRATING TAB PO PRN (08:45)
[2019-04-25] MEDS: ASPIRIN 81 MG ENTERIC COATED PO SCH (10:03)
[2019-04-25] MEDS: AMLODIPINE BESYLATE 5 MG TAB PO SCH (10:03)
[2019-04-25] MEDS: FAMOTIDINE 20 MG TAB PO SCH ×2 (10:03→16:48)
[2019-04-25 12:00] VITALS: BP 156/98
--- NOTE | 2019-04-25 15:00 | NUR ---
Nutrition Screen Note RD Recommendation for Physician: -Continue current diet per MD. -Consider renal restriction pending lab trends. Plan of Care: RD following, monitoring for tolerance and adequacy. Pt denied education. Nutrition reason for involvement: Diagnosis Primary Diagnose(s): acute renal failure, dehydration PMH: HTN and HLD Ht: 60 in Wt: 224 lb BMI: 42.7 kg/m2 IBW: [address] Assessment: 04/25: 58 YOM admitted for acute renal failure with PMH significant of HTN and HLD. Pt can speak some Ethiopian and was able to answer all questions. Pt reported a good appetite, denied N/V/C/D/chewing or swallowing as well as any food allergies. Pt also denied education. Chart reviewed. Labs and meds reviewed. A1c 5.5, TG 239, LDL cholesterol 44 and HDL cholesterol 27. Per EMR pt was 224 lbs in December of 2017, suggesting a 4% weight loss in one year, which is not significant. Will continue to monitor. Current Diet: cardiac Malnutrition Evaluation (04/25) The patient does not meet criteria for a specified degree of malnutrition at this time. Will re-evaluate at follow-up as appropriate. Diet Education Needs Assessment: Diet education indicated, pt denied education. Nutrition Care Level: low Signed: Sofia Morris, RYANNE, LD
[2019-04-25 16:00] VITALS: BP 158/93
--- NOTE | 2019-04-25 19:00 | NUR ---
RECEIVED REPORT FROM DAY NURSE. PATIENT IS RESTING COMFORTABLY IN THE BED. BED IS IN LOWEST POSITION AND CALL METZ IS WITHIN REACH. WILL CONTINUE TO MONITOR PATIENTS PLAN OF CARE.
--- NOTE | 2019-04-25 19:15 | NUR ---
HANDOFF REPORT TO ONCOMING NURSE, PATIENT OUT OF BED SITTING IN CHAIR, VERBALIZING NEEDS, 1800 ANTIBIOTIC WILL ADMINISTER IT.
[2019-04-25 20:00] VITALS: BP 174/98
[2019-04-25] MEDS: ASPIRIN 81 MG CHEW TAB PO SCH (20:31)
[2019-04-25] MEDS: ATORVASTATIN 40 MG TAB PO SCH (20:31)
[2019-04-26] VITALS: BP 132/80
[2019-04-26 03:26] LABS: BASOPHILS % 0.3 % (0.0-1.0); EOSINOPHILS # (AUTO) 0.3 (0.0-0.4); EOSINOPHILS % 5.7 % (0.0-6.0); HEMATOCRIT 39.8 % (38.2-49.6); HEMOGLOBIN 13.7 g/dL (14.0-18.0); LYMPHOCYTES # (AUTO) 1.9 (1.0-3.2); LYMPHOCYTES % 30.9 % (18.0-39.1); MEAN CORPUSCULAR HEMOGLOBIN 32.3 pg (28-32); MEAN CORPUSCULAR HGB CONC 34.4 g/dL (31-35); MEAN CORPUSCULAR VOLUME 93.9 fL (81-99); MONOCYTES # (AUTO) 0.4 (0.2-0.8); MONOCYTES % 7.3 % (4.4-11.3); NEUTROPHILS # (AUTO) 3.3 (2.1-6.9); NEUTROPHILS % 55.5 % (38.7-80.0); PLATELET COUNT 204 x10e3/uL (140-360); RED BLOOD COUNT 4.24 x10e6/uL (4.3-5.7)
[2019-04-26 03:49] LABS: ANION GAP 12.6 mmol/L (8-16); BLOOD UREA NITROGEN 17 mg/dL (7-26); BUN/CREATININE RATIO 15 (6-25); CALCIUM 9.8 mg/dL (8.4-10.2); CARBON DIOXIDE 26 mmol/L (22-29); CHLORIDE 104 mmol/L (98-107); CREATININE, SERUM 1.11 mg/dL (0.72-1.25); EST GLOMERULAR FILTRATION RATE > 60 ML/MIN (60-); GLUCOSE 97 mg/dL (74-118); POTASSIUM 3.6 mmol/L (3.5-5.1); SODIUM 139 mmol/L (136-145)
[2019-04-26 04:00] VITALS: BP 135/85
[2019-04-26] MEDS: METRONIDAZOLE 500MG/NS 100ML 100 ML IV SCH (05:18)
--- NOTE | 2019-04-26 05:41 | NUR ---
[employer]ER states FMLA forms for patient should be sent over to the MD's office to be filled out. Patient has been made aware of this.
[2019-04-26] MEDS ORDERED: METRONIDAZOLE500 MG PO (05:43)
[2019-04-26] MEDS ORDERED: CIPRO500 MG PO (05:43)
[2019-04-26] MEDS: CIPROFLOXACIN 200 MG/D5W 100ML 100 ML IV SCH (06:04)
--- NOTE | 2019-04-26 06:38 | NUR ---
report given to day nurse. patient is resting comfortably in bed. bed is in lowest position and call munoz is within reach.
--- NOTE | 2019-04-26 07:08 | NUR ---
upon rounds pt resp even and unlabored pt easily aroused to name and touch, pt able to make needs known, call light in reach pt has no c/o pain when asked, will cont to monitor.
[2019-04-26 08:20] VITALS: BP 154/85
[2019-04-26 08:46] VITALS: BP 154/85
[2019-04-26] MEDS: FAMOTIDINE 20 MG TAB PO SCH (09:43)
[2019-04-26] MEDS: AMLODIPINE BESYLATE 5 MG TAB PO SCH (09:43)
[2019-04-26] MEDS: ASPIRIN 81 MG ENTERIC COATED PO SCH (09:43)
--- NOTE | 2019-04-26 11:10 | NUR ---
PT DISCHARGE HOME WITH RESP EVEN AND UNLABORED AT THIS TIME, PT ABLE TO MAKE NEEDS KNOWN, IV SITE REMOVED, NO SWELLING NO REDNESS TO SITE.
--- NOTE | 2019-04-27 21:27 | Discharge Summary ---
ADMISSION DIAGNOSES: Acute kidney injury on chronic kidney disease 4, hypertension, hyperlipidemia, weakness, fatigue, hypercalcemia, obesity, diarrhea. DISCHARGE DIAGNOSES: Acute kidney injury on chronic kidney disease 4, hypertension, hyperlipidemia, weakness, fatigue, hypercalcemia, obesity, diarrhea, colitis. HISTORY: Hypertension and hyperlipidemia. SURGICAL HISTORY: Left hand surgery, left leg I and D with closure. FAMILY HISTORY: The patient's father had diabetes. SOCIAL HISTORY: The patient drinks 1 to 2 beers a day. HOSPITAL COURSE: A 58-year-old male complains of intermittent watery diarrhea for the last few weeks. He denies nausea, vomiting, dizziness, abdominal pain, and admits to chills. He went to his PCP and got Bactrim for UTI, but yesterday he began having shortness of breath, so he went to the ER. On admission, the patient's GFR was 19. IV fluids were started. Chest x-ray was negative. CT of the abdomen showed subtle sigmoid colon wall thickening, could be due to colitis. Triple-vessel coronary artery calcific atherosclerosis. Hepatic steatosis. CT of the brain was negative. Urine culture negative. Stool culture, ova and parasite were sent out, but still pending at time of discharge. Clostridium difficile was negative. The patient was started on Cipro and Flagyl and then switched over to Cipro and Flagyl p.o. at time of discharge. Vital signs are stable, the patient afebrile. He will follow up with primary care in 1 to 2 weeks. He has not had diarrhea since hospitalization and is ready to discharge home. The patient understands discharge instructions and agrees to plan. Dictated by Nubia Mak NP Josue Patel MD ADRIÁN/MODL /[id number]
== END 2019-04-26 11:15 | disposition still patient (30) | DRG 683 ==
LOC: ER 15:16 → ERHOLD 17:11 → MED/SURG 17:30
PROVIDERS: ADMIT Internal Medicine; ATTEND Internal Medicine
DX: I12.9 Hypertensive chronic kidney disease with stage 1 through stage 4 chronic kidney disease, or unspecified chronic kidney disease (principal); N17.9 Acute kidney failure, unspecified; N18.4 Chronic kidney disease, stage 4 (severe); N39.0 Urinary tract infection, site not specified; E78.5 Hyperlipidemia, unspecified; E83.52 Hypercalcemia; K52.9 Noninfective gastroenteritis and colitis, unspecified; R53.1 Weakness; E88.89 Other specified metabolic disorders
CPT/HCPCS: 36415; 70450; 71045; 74176; 80048; 80053; 80061; 80307; 80320; 81001; 82550; 82553; 82948; 83036; 83735; 83880; 84443; 84484; 85025; 85610; 85730; 87045; 87086; 87177; 87328; 87493; 93005; 99284; J0360; J2405; J7030